=== PATIENT | female | born 1975 | race Caucasian/White ===

== ENCOUNTER 2017-09-03 21:28 | Observation (INO) ==
[2017-09-03] MEDS ORDERED: ONDANSETRON 4 MG/2 ML VIAL IV STA (21:52)
[2017-09-03] MEDS ORDERED: HYDROmorphone 2 MG/1 ML VIAL IV STA (21:52)
[2017-09-03] MEDS ORDERED: CLINDAMYCIN INJ 900 MG in PREMIX 1 EACH IV STA (21:53)
[2017-09-03] MEDS ORDERED: ONDANSETRON 4 MG/2 ML VIAL ONE ×2 (21:58→23:25)
[2017-09-03] MEDS ORDERED: CLINDAMYCIN INJ 50 ML IV ONE (21:58)
[2017-09-03] MEDS ORDERED: HYDROmorphone 2 MG/1 ML VIAL ONE (21:59)
[2017-09-03] MEDS ORDERED: DIPH/TET/ACEL PERT BOOSTER VACCINE 0.5 ML VIAL IM ONE ×2 (22:32→22:47)
[2017-09-03] MEDS ORDERED: BUPIVACAINE 0.25% 50 ML VIAL ONE (23:02)
[2017-09-03] MEDS ORDERED: LIDOCAINE 1%/EPI INJ 20 ML VIAL ONE (23:02)
[2017-09-03 23:10] LABS: Basophils # 0.1 10*3/uL (0.0-0.2); Basophils % 1.1 % (0.0-0.8); Eosinophils # 0.2 10*3/uL (0.0-0.87); Eosinophils % 1.5 % (0.00-10.9); Hematocrit 44.5 VOL% (35.7-47.0); Hemoglobin 15.6 GM/DL (12.0-16.0); Immature Granulocytes % 0.6 %; Immature Granulocytes Absolute 0.07 #; Lymphocytes % 17.6 % (21.3-54.2); Mean Corpuscular HGB Conc 35.1 GM/DL (32-36); Mean Corpuscular Hemoglobin 29 PG (27-34); Mean Corpuscular Volume 83.5 FL (87-102); Mean Platelet Volume 10.3 FL (9.6-12.0); Monocytes # 0.5 10*3/uL (0.11-0.8); Monocytes % 4.7 % (1.7-12.7); Neutrophils # 8.4 10*3/uL (1.4-7.4); Neutrophils % 74.5 % (38.7-73.9); Platelet Count 277 T/CUMM (130-400); Red Blood Count 5.33 MC/CUMM (3.8-5.5); Red Cell Distribution Width 12.8 % (9.3-17.3); White Blood Count 11.3 T/CUMM (4-12)
[2017-09-03] MEDS ORDERED: KETOROLAC 30 MG/1 ML VIAL ONE (23:25)
[2017-09-03] MEDS ORDERED: LIDOCAINE 1% 5 ML VIAL ONE (23:25)
[2017-09-03] MEDS ORDERED: PROPOFOL 200 MG/20 ML VIAL IV ONE (23:25)
[2017-09-03] MEDS ORDERED: PHENYLEPHRINE 1 MG/10 ML SYRINGE IV ONE (23:25)
[2017-09-03] MEDS ORDERED: DEXAMETHASONE 10 MG/1 ML VIAL ONE (23:25)
[2017-09-03 23:26] LABS: PT Patient Result 10.1 SECS; Partial Thromboplastin Time 24.3 SECS (0-40)
[2017-09-03 23:28] LABS: Bilirubin,Total 0.6 MG/DL (0.2-1.0); Calcium 8.4 MG/DL (8.5-10.1); Osmolality,Calculated 282.5 MOS/KG (273-304); Potassium 3.8 MMOL/L (3.5-5.1); Total Protein 6.9 G/DL (6.4-8.3)
[2017-09-04] MEDS ORDERED: ONDANSETRON 4 MG/2 ML VIAL IV PRN (00:23)
[2017-09-04] MEDS ORDERED: MIDAZOLAM 2 MG/2 ML VIAL ONE (00:42)
[2017-09-04] MEDS ORDERED: fentaNYL 100 MCG/2 ML VIAL ONE (00:42)
[2017-09-04] MEDS ORDERED: ePHEDrine 50 MG/ML AMP ONE (00:42)
[2017-09-04] MEDS ORDERED: SEVOFLURANE 1 UNIT/15 MINUTE INH ONE (00:42)
[2017-09-04] MEDS ORDERED: LACTATED RINGERS 1,000 ML IV ONE (00:43)
[2017-09-04] MEDS: HYDROmorphone 2 MG/1 ML VIAL IV PRN ×7 (01:28→21:39)
[2017-09-04] MEDS: CLINDAMYCIN INJ 900 MG in PREMIX 1 EACH IV SCH ×3 (06:14→21:40)
[2017-09-04] MEDS: LEVOFLOXACIN INJ 500 MG in PREMIX 1 EACH IV SCH (17:36)
[2017-09-05] MEDS: CLINDAMYCIN INJ 900 MG in PREMIX 1 EACH IV SCH ×2 (05:54→13:59)
[2017-09-05] MEDS: HYDROmorphone 2 MG/1 ML VIAL IV PRN ×3 (05:54→13:56)
[2017-09-05 08:06] LABS: Calcium 7.7 MG/DL (8.5-10.1); Osmolality,Calculated 283.1 MOS/KG (273-304); Potassium 3.7 MMOL/L (3.5-5.1)
[2017-09-05 08:41] LABS: Basophils # 0.1 10*3/uL (0.0-0.2); Basophils % 0.7 % (0.0-0.8); Eosinophils # 0.1 10*3/uL (0.0-0.87); Eosinophils % 0.5 % (0.00-10.9); Hematocrit 31.6 VOL% (35.7-47.0); Hemoglobin 10.7 GM/DL (12.0-16.0); Immature Granulocytes % 0.6 %; Immature Granulocytes Absolute 0.06 #; Lymphocytes # 3.4 10*3/uL (1.4-4.0); Lymphocytes % 35.2 % (21.3-54.2); Mean Corpuscular HGB Conc 33.9 GM/DL (32-36); Mean Corpuscular Hemoglobin 29 PG (27-34); Mean Corpuscular Volume 86.6 FL (87-102); Mean Platelet Volume 10.5 FL (9.6-12.0); Monocytes # 0.6 10*3/uL (0.11-0.8); Monocytes % 5.8 % (1.7-12.7); Neutrophils # 5.5 10*3/uL (1.4-7.4); Neutrophils % 57.2 % (38.7-73.9); Platelet Count 214 T/CUMM (130-400); Red Blood Count 3.65 MC/CUMM (3.8-5.5); Red Cell Distribution Width 13.2 % (9.3-17.3); White Blood Count 9.5 T/CUMM (4-12)
[2017-09-05] MEDS: LEVOFLOXACIN INJ 500 MG in PREMIX 1 EACH IV SCH (09:35)
[2017-09-05 11:50] VITALS: BP 107/61
== END 2017-09-05 16:50 | disposition home or self-care (01) ==
LOC: N.ED 21:28 → N.EDINP 22:28 → INTOOBSV 22:28 → N.2E 23:15
PROVIDERS: ADMIT Surgery; ATTEND Surgery

== ENCOUNTER 2017-09-13 18:23 | Inpatient (IN) ==
[2017-09-13] MEDS ORDERED: ONDANSETRON 4 MG/2 ML VIAL IV STA (19:04)
[2017-09-13] MEDS ORDERED: VANCOMYCIN INJ 1,000 MG in SODIUM CHLORIDE 0.9% 250 ML IV STA (19:06)
[2017-09-13] MEDS ORDERED: GENTAMICIN INJ 80 MG in SODIUM CHLORIDE 0.9% 100 ML IV STA (19:06)
[2017-09-13] MEDS ORDERED: ONDANSETRON 4 MG/2 ML VIAL ONE (19:25)
[2017-09-13] MEDS ORDERED: HYDROmorphone 2 MG/1 ML VIAL ONE (19:25)
[2017-09-13] MEDS ORDERED: HYDROmorphone 2 MG/1 ML VIAL IV STA (19:46)
[2017-09-13 19:59] LABS: Basophils # 0.1 10*3/uL (0.0-0.2); Basophils % 1.3 % (0.0-0.8); Eosinophils # 0.2 10*3/uL (0.0-0.87); Eosinophils % 3.6 % (0.00-10.9); Hematocrit 43.1 VOL% (35.7-47.0); Hemoglobin 15.3 GM/DL (12.0-16.0); Immature Granulocytes % 0.4 %; Immature Granulocytes Absolute 0.02 #; Lymphocytes # 1.6 10*3/uL (1.4-4.0); Lymphocytes % 29.4 % (21.3-54.2); Mean Corpuscular HGB Conc 35.5 GM/DL (32-36); Mean Corpuscular Hemoglobin 29 PG (27-34); Mean Corpuscular Volume 81.9 FL (87-102); Mean Platelet Volume 9.7 FL (9.6-12.0); Monocytes # 0.2 10*3/uL (0.11-0.8); Monocytes % 2.8 % (1.7-12.7); Neutrophils # 3.3 10*3/uL (1.4-7.4); Neutrophils % 62.5 % (38.7-73.9); Platelet Count 238 T/CUMM (130-400); Red Blood Count 5.26 MC/CUMM (3.8-5.5); Red Cell Distribution Width 12.4 % (9.3-17.3); White Blood Count 5.3 T/CUMM (4-12)
[2017-09-13] MEDS ORDERED: VANCOMYCIN 1,000 MG VIAL ONE (20:08)
[2017-09-13 20:18] LABS: Albumin 3.7 G/DL (3.4-5.0); Bilirubin,Total 0.5 MG/DL (0.2-1.0); Calcium 8.9 MG/DL (8.5-10.1); Magnesium 1.9 MG/DL (1.8-2.4); Osmolality,Calculated 280.7 MOS/KG (273-304); Potassium 3.3 MMOL/L (3.5-5.1); Total Protein 7.1 G/DL (6.4-8.3)
[2017-09-13] MEDS ORDERED: POTASSIUM CHLORIDE 20 MEQ TABLET PO STA (20:41)
[2017-09-13 20:43] LABS: PT Patient Result 10.1 SECS; Partial Thromboplastin Time 28.9 SECS (0-40)
[2017-09-13] MEDS ORDERED: POTASSIUM CHLORIDE 20 MEQ TABLET PO ONE (20:49)
[2017-09-13] MEDS ORDERED: ONDANSETRON 4 MG/2 ML VIAL IV PRN (22:19)
[2017-09-13] MEDS ORDERED: DEXTROSE 50% 25 GM/50 ML VIAL IV PRN (22:19)
[2017-09-13] MEDS ORDERED: GLUCAGON 1 MG VIAL IM PRN (22:19)
[2017-09-13] MEDS ORDERED: ACETAMINOPHEN 325 MG TABLET PO PRN (22:19)
[2017-09-14] MEDS: HYDROmorphone 2 MG/1 ML VIAL IV PRN (00:04)
[2017-09-14 05:16] LABS: Albumin 3.1 G/DL (3.4-5.0); Bilirubin,Total 0.4 MG/DL (0.2-1.0); Calcium 8.1 MG/DL (8.5-10.1); Osmolality,Calculated 279.4 MOS/KG (273-304); Total Protein 5.6 G/DL (6.4-8.3)
[2017-09-14 07:41] LABS: Basophils # 0.1 10*3/uL (0.0-0.2); Basophils % 1.4 % (0.0-0.8); Eosinophils # 0.3 10*3/uL (0.0-0.87); Eosinophils % 4.3 % (0.00-10.9); Hematocrit 31.5 VOL% (35.7-47.0); Immature Granulocytes % 0.5 %; Immature Granulocytes Absolute 0.03 #; Lymphocytes # 1.6 10*3/uL (1.4-4.0); Lymphocytes % 27.9 % (21.3-54.2); Mean Corpuscular HGB Conc 35.6 GM/DL (32-36); Mean Corpuscular Hemoglobin 30 PG (27-34); Mean Corpuscular Volume 83.8 FL (87-102); Mean Platelet Volume 9.8 FL (9.6-12.0); Monocytes # 0.4 10*3/uL (0.11-0.8); Monocytes % 6.9 % (1.7-12.7); Neutrophils # 3.4 10*3/uL (1.4-7.4); Platelet Count 251 T/CUMM (130-400); Red Cell Distribution Width 12.5 % (9.3-17.3); White Blood Count 5.8 T/CUMM (4-12)
[2017-09-14 07:48] LABS: Red Blood Count 3.76 MC/CUMM (3.8-5.5)
[2017-09-14 07:49] LABS: Hemoglobin 11.2 GM/DL (12.0-16.0)
[2017-09-14] MEDS: PANTOPRAZOLE 40 MG TABLET PO SCH (08:25)
[2017-09-14] MEDS: INSULIN REGULAR 100 UNIT/ML SUBCUT SCH ×4 (08:26→21:23)
[2017-09-14] MEDS: VANCOMYCIN INJ 1,250 MG in SODIUM CHLORIDE 0.45% 250 ML IV SCH ×2 (11:45→21:55)
[2017-09-14] MEDS: GENTAMICIN INJ 300 MG in SODIUM CHLORIDE 0.9% 100 ML IV SCH (17:36)
[2017-09-14] MEDS: LACTATED RINGERS 1,000 ML IV SCH (18:27)
[2017-09-15] MEDS ORDERED: BUPIVACAINE 0.25% 50 ML VIAL ONE (07:40)
[2017-09-15] MEDS ORDERED: LIDOCAINE 1%/EPI INJ 20 ML VIAL ONE (07:40)
[2017-09-15] MEDS: INSULIN REGULAR 100 UNIT/ML SUBCUT SCH ×4 (07:57→22:08)
[2017-09-15] MEDS: PANTOPRAZOLE 40 MG TABLET PO SCH (08:03)
[2017-09-15] MEDS: HYDROmorphone 2 MG/1 ML VIAL IV PRN ×2 (08:08→22:17)
[2017-09-15] MEDS ORDERED: ALBUTEROL/IPRATROPIUM 3 ML NEB RESP TX ONE ×2 (09:24→09:26)
[2017-09-15] MEDS: VANCOMYCIN INJ 1,250 MG in SODIUM CHLORIDE 0.45% 250 ML IV SCH ×2 (10:41→22:08)
[2017-09-15] MEDS ORDERED: SEVOFLURANE 1 UNIT/15 MINUTE INH ONE (11:04)
[2017-09-15] MEDS ORDERED: PROPOFOL 200 MG/20 ML VIAL IV ONE (11:04)
[2017-09-15] MEDS ORDERED: fentaNYL 100 MCG/2 ML VIAL ONE (11:04)
[2017-09-15] MEDS ORDERED: MIDAZOLAM 2 MG/2 ML VIAL ONE (11:04)
[2017-09-15] MEDS ORDERED: SUCCINYLCHOLINE 200 MG/10 ML VIAL ONE (11:05)
[2017-09-15] MEDS: LACTATED RINGERS 1,000 ML IV SCH (17:36)
[2017-09-15] MEDS: GENTAMICIN INJ 300 MG in SODIUM CHLORIDE 0.9% 100 ML IV SCH (18:00)
[2017-09-15 18:17] LABS: Apearance,Urine Slightly Hazy (Clear); Bacteria,Urine Occasional /HPF (Few); Bilirubin,Urine Negative (Negative); Blood, Urine Negative (Negative); Glucose,Urine (UA) 50 mg/dL (Negative); Ketones,Urine Negative (Negative); Mucus,Urine Occasional /LPF (Occasional); Nitrite,Urine Negative (Negative); Protein,Urine Negative; RBC,Urine <1 /HPF (0-4); Squamous Epithelial Cell,Urine Occasional /HPF (0-10); Urine Color Yellow (Yellow); Urine Urobilinogen < 2.0 EU/DL (0.2-1.0); WBC,Urine 1 /HPF (0-6)
[2017-09-16] MEDS: INSULIN REGULAR 100 UNIT/ML SUBCUT SCH ×4 (08:06→20:39)
[2017-09-16] MEDS: HYDROmorphone 2 MG/1 ML VIAL IV PRN ×3 (08:09→20:39)
[2017-09-16] MEDS: PANTOPRAZOLE 40 MG TABLET PO SCH (09:20)
[2017-09-16] MEDS: VANCOMYCIN INJ 1,250 MG in SODIUM CHLORIDE 0.45% 250 ML IV SCH ×2 (09:23→21:48)
[2017-09-16] MEDS: LACTATED RINGERS 1,000 ML IV SCH ×2 (12:07→20:15)
[2017-09-16] MEDS: GENTAMICIN INJ 300 MG in SODIUM CHLORIDE 0.9% 100 ML IV SCH (17:13)
[2017-09-17] MEDS: HYDROmorphone 2 MG/1 ML VIAL IV PRN ×3 (03:01→20:24)
[2017-09-17] MEDS: INSULIN REGULAR 100 UNIT/ML SUBCUT SCH ×4 (08:19→21:53)
[2017-09-17] MEDS: LACTATED RINGERS 1,000 ML IV SCH (08:20)
[2017-09-17] MEDS: PANTOPRAZOLE 40 MG TABLET PO SCH (08:54)
[2017-09-17] MEDS: VANCOMYCIN INJ 1,250 MG in SODIUM CHLORIDE 0.45% 250 ML IV SCH ×2 (09:00→21:51)
[2017-09-17 10:27] LABS: Calcium 8.5 MG/DL (8.5-10.1); Osmolality,Calculated 275.5 MOS/KG (273-304); Potassium 3.7 MMOL/L (3.5-5.1)
[2017-09-17] MEDS: GENTAMICIN INJ 300 MG in SODIUM CHLORIDE 0.9% 100 ML IV SCH (17:56)
[2017-09-18] MEDS: LACTATED RINGERS 1,000 ML IV SCH (02:17)
[2017-09-18] MEDS: INSULIN REGULAR 100 UNIT/ML SUBCUT SCH ×3 (07:33→16:19)
[2017-09-18] MEDS: PANTOPRAZOLE 40 MG TABLET PO SCH (08:27)
[2017-09-18] MEDS: VANCOMYCIN INJ 1,250 MG in SODIUM CHLORIDE 0.45% 250 ML IV SCH (10:30)
[2017-09-18] MEDS ORDERED: NEOMYCIN/POLYMYXIN/BACITRACIN OINT 28.4 GM TUBE TOP ONE (12:34)
[2017-09-18] MEDS ORDERED: HYDROmorphone 2 MG/1 ML VIAL IV PRN (12:42)
[2017-09-18] MEDS: HYDROmorphone 2 MG/1 ML VIAL IV PRN ×3 (12:50→13:27)
[2017-09-18] MEDS ORDERED: ONDANSETRON 4 MG/2 ML VIAL ONE ×2 (12:52→12:55)
[2017-09-18] MEDS ORDERED: PROPOFOL 200 MG/20 ML VIAL IV ONE (12:54)
[2017-09-18] MEDS ORDERED: fentaNYL 100 MCG/2 ML VIAL ONE (12:55)
[2017-09-18] MEDS ORDERED: MIDAZOLAM 2 MG/2 ML VIAL ONE (12:55)
[2017-09-18] MEDS ORDERED: ONDANSETRON 4 MG/2 ML VIAL IV PRN (12:58)
[2017-09-18] MEDS ORDERED: DEXTROSE 5% NACL 0.45% 1,000 ML IV SCH (13:00)
[2017-09-18 17:05] VITALS: BP 146/86
[2017-09-18] MEDS ORDERED: CLINDAMYCIN INJ 900 MG in PREMIX 1 EACH IV SCH (18:47)
== END 2017-09-18 17:05 | disposition home or self-care (01) | DRG 902 ==
LOC: N.ED 18:23 → N.EDINP 21:17 → N.3E 22:13
PROVIDERS: ADMIT Surgery; ATTEND Surgery

== ENCOUNTER 2017-11-13 12:29 | Inpatient (IN) ==
[2017-11-13] MEDS ORDERED: ASPIRIN 325 MG TABLET PO STA (12:56)
[2017-11-13] MEDS ORDERED: ONDANSETRON 4 MG/2 ML VIAL IV PRN ×2 (12:56→17:24)
[2017-11-13] MEDS ORDERED: MORPHINE 2 MG/1 ML SYRINGE IV PRN (12:56)
[2017-11-13] MEDS ORDERED: NITROGLYCERIN 2% OINT 1 INCH/GM PACK TOP STA (12:56)
[2017-11-13 13:07] LABS: Basophils # 0.1 10*3/uL (0.0-0.2); Basophils % 0.8 % (0.0-0.8); Eosinophils # 0.1 10*3/uL (0.0-0.87); Eosinophils % 2.1 % (0.00-10.9); Hematocrit 47.1 VOL% (35.7-47.0); Hemoglobin 15.8 GM/DL (12.0-16.0); Immature Granulocytes % 0.3 %; Immature Granulocytes Absolute 0.02 #; Lymphocytes % 16.5 % (21.3-54.2); Mean Corpuscular HGB Conc 33.5 GM/DL (32-36); Mean Corpuscular Hemoglobin 28 PG (27-34); Mean Corpuscular Volume 82.3 FL (87-102); Monocytes # 0.3 10*3/uL (0.11-0.8); Monocytes % 4.7 % (1.7-12.7); Neutrophils # 4.6 10*3/uL (1.4-7.4); Neutrophils % 75.6 % (38.7-73.9); Platelet Count 195 T/CUMM (130-400); Red Blood Count 5.72 MC/CUMM (3.8-5.5); Red Cell Distribution Width 12.9 % (9.3-17.3); White Blood Count 6.1 T/CUMM (4-12)
[2017-11-13 13:15] LABS: PT Patient Result 10.2 SECS; Partial Thromboplastin Time 27.1 SECS (0-40)
[2017-11-13] MEDS ORDERED: NITROGLYCERIN 2% OINT 1 INCH/GM PACK TOP ONE (13:29)
[2017-11-13 13:32] LABS: Albumin 3.6 G/DL (3.4-5.0); Bilirubin,Total 0.7 MG/DL (0.2-1.0); Calcium 7.9 MG/DL (8.5-10.1); Osmolality,Calculated 279.5 MOS/KG (273-304); Potassium 3.5 MMOL/L (3.5-5.1); Total Protein 6.2 G/DL (6.4-8.3)
[2017-11-13] MEDS ORDERED: KETOROLAC 30 MG/1 ML VIAL IV PRN (17:04)
[2017-11-13] MEDS ORDERED: TEMAZEPAM 15 MG CAPSULE PO PRN (17:04)
[2017-11-13] MEDS ORDERED: IBUPROFEN 800 MG TABLET PO PRN (17:04)
[2017-11-13] MEDS ORDERED: MELOXICAM 7.5 MG TABLET PO PRN (17:04)
[2017-11-13 17:18] LABS: Apearance,Urine Slightly Hazy (Clear); Bilirubin,Urine Negative (Negative); Blood, Urine Negative (Negative); Glucose,Urine (UA) Negative (Negative); Ketones,Urine Negative (Negative); Nitrite,Urine Negative (Negative); Protein,Urine Negative; RBC,Urine 3 /HPF (0-4); Squamous Epithelial Cell,Urine Few /HPF (0-10); Urine Color Yellow (Yellow); Urine Specific Gravity > 1.060 (1.001-1.035); Urine Urobilinogen < 2.0 EU/DL (0.2-1.0); WBC,Urine <1 /HPF (0-6)
[2017-11-13 17:24] LABS: Barbiturates Screen,Urine Negative (Negative); Benzodiazepines Screen,Urine Negative (Negative); Cannabinoid Screen,Urine Negative (Negative); Opiate Screen,Urine Positive (Negative); Phencyclidine Screen,Urine Negative (Negative)
[2017-11-13] MEDS ORDERED: MORPHINE 10 MG/1 ML VIAL IV PRN (17:24)
[2017-11-13] MEDS ORDERED: GLUCAGON 1 MG VIAL IM PRN (17:24)
[2017-11-13] MEDS ORDERED: ACETAMINOPHEN 325 MG TABLET PO PRN (17:24)
[2017-11-13] MEDS ORDERED: DEXTROSE 50% 25 GM/50 ML VIAL IV PRN (17:24)
[2017-11-13 17:29] LABS: Risk Ratio 4.79; T4 (Thyroxine) 9.5 UG/DL (4.7-13.3); VLDL CHOLESTEROL 43.8 MG/DL
[2017-11-13] MEDS: NITROGLYCERIN 2% OINT 1 INCH/GM PACK TOP SCH (20:51)
[2017-11-13] MEDS: INSULIN LISPRO 100 UNIT/ML SUBCUT SCH (20:51)
[2017-11-13] MEDS ORDERED: ENOXAPARIN 40 MG/0.4 ML SYRINGE SUBCUT SCH (21:00)
[2017-11-13] MEDS ORDERED: LISINOPRIL 20 MG TABLET PO SCH (21:00)
[2017-11-14] MEDS: NITROGLYCERIN 2% OINT 1 INCH/GM PACK TOP SCH ×3 (00:25→13:09)
[2017-11-14 06:25] LABS: Albumin 3.3 G/DL (3.4-5.0); Bilirubin,Total 0.5 MG/DL (0.2-1.0); Calcium 7.6 MG/DL (8.5-10.1); Osmolality,Calculated 278.4 MOS/KG (273-304); Potassium 3.5 MMOL/L (3.5-5.1)
[2017-11-14] MEDS ORDERED: ASPIRIN EC 325 MG TABLET PO SCH (09:00)
[2017-11-14] MEDS ORDERED: SIMVASTATIN 40 MG TABLET PO SCH (09:00)
[2017-11-14] MEDS ORDERED: METOPROLOL SUCCINATE XL 25 MG TABLET PO SCH (10:00)
[2017-11-14] MEDS: INSULIN LISPRO 100 UNIT/ML SUBCUT SCH ×2 (10:00→12:38)
[2017-11-14 10:37] LABS: Troponin I Only < 0.015 NG/ML (0.00-0.045)
[2017-11-14 12:41] VITALS: BP 126/82
== END 2017-11-14 13:49 | disposition home or self-care (01) | DRG 880 ==
LOC: EDUNIT# → EDBD → N.ED 12:29 → N.TELEN 15:12 → N.EDINP 17:09 → N.TELEN 18:22
PROVIDERS: ADMIT Pediatrics; ATTEND Pediatrics

== ENCOUNTER 2017-12-22 21:10 | Inpatient (IN) ==
[2017-12-23] MEDS ORDERED: ACETAMINOPHEN 325 MG TABLET PO PRN (01:51)
[2017-12-23] MEDS ORDERED: GLUCAGON 1 MG VIAL IM PRN ×2 (01:54→12:16)
[2017-12-23] MEDS ORDERED: DEXTROSE 50% 25 GM/50 ML VIAL IV PRN ×2 (01:54→12:16)
[2017-12-23 02:21] LABS: Basophils # 0.1 10*3/uL (0.0-0.2); Basophils % 0.6 % (0.0-0.8); Eosinophils # 0.2 10*3/uL (0.0-0.87); Eosinophils % 1.8 % (0.00-10.9); Hematocrit 41.1 VOL% (35.7-47.0); Immature Granulocytes % 0.3 %; Immature Granulocytes Absolute 0.03 #; Lymphocytes # 1.8 10*3/uL (1.4-4.0); Lymphocytes % 18.7 % (21.3-54.2); Mean Corpuscular HGB Conc 34.1 GM/DL (32-36); Mean Corpuscular Hemoglobin 27 PG (27-34); Mean Platelet Volume 10.2 FL (9.6-12.0); Monocytes # 0.7 10*3/uL (0.11-0.8); Monocytes % 6.9 % (1.7-12.7); Neutrophils # 6.9 10*3/uL (1.4-7.4); Neutrophils % 71.7 % (38.7-73.9); Platelet Count 214 T/CUMM (130-400); Red Cell Distribution Width 13.9 % (9.3-17.3); White Blood Count 9.6 T/CUMM (4-12)
[2017-12-23] MEDS ORDERED: ONDANSETRON 4 MG/2 ML VIAL ONE ×3 (02:27→11:30)
[2017-12-23] MEDS ORDERED: HYDROmorphone 2 MG/1 ML VIAL ONE ×2 (02:28→11:30)
[2017-12-23] MEDS: HYDROmorphone 2 MG/1 ML VIAL IV PRN ×2 (02:30→18:15)
[2017-12-23] MEDS: ONDANSETRON 4 MG/2 ML VIAL IV PRN (02:30)
[2017-12-23 02:33] LABS: Calcium 7.9 MG/DL (8.5-10.1); Osmolality,Calculated 276.5 MOS/KG (273-304); Potassium 3.3 MMOL/L (3.5-5.1)
[2017-12-23] MEDS: INSULIN LISPRO 100 UNIT/ML SUBCUT SCH ×4 (03:03→17:40)
[2017-12-23] MEDS: SODIUM CHLORIDE 0.45% 1,000 ML IV SCH ×3 (03:08→20:53)
[2017-12-23] MEDS: metroNIDAZOLE INJ 500 MG in PREMIX 1 EACH IV SCH ×3 (03:17→18:14)
[2017-12-23] MEDS: LEVOFLOXACIN INJ 750 MG in PREMIX 1 EACH IV SCH (04:19)
[2017-12-23] MEDS: PANTOPRAZOLE 40 MG TABLET PO SCH (08:11)
[2017-12-23] MEDS ORDERED: PROPOFOL 200 MG/20 ML VIAL IV ONE (11:16)
[2017-12-23] MEDS ORDERED: MIDAZOLAM 2 MG/2 ML VIAL ONE (11:16)
[2017-12-23] MEDS ORDERED: SEVOFLURANE 1 UNIT/15 MINUTE INH ONE (11:16)
[2017-12-23] MEDS ORDERED: HYDROmorphone 2 MG/1 ML VIAL IV PRN (11:17)
[2017-12-23] MEDS ORDERED: ONDANSETRON 4 MG/2 ML VIAL IV PRN (11:17)
[2017-12-23] MEDS ORDERED: fentaNYL 100 MCG/2 ML VIAL ONE (11:17)
[2017-12-23] MEDS ORDERED: TEMAZEPAM 15 MG CAPSULE PO PRN (12:16)
[2017-12-23] MEDS: INSULIN REGULAR 100 UNIT/ML SUBCUT SCH ×3 (13:01→20:59)
[2017-12-23] MEDS: LISINOPRIL 10 MG TABLET PO SCH (21:00)
[2017-12-23] MEDS: SIMVASTATIN 40 MG TABLET PO SCH (21:01)
[2017-12-24] MEDS: INSULIN LISPRO 100 UNIT/ML SUBCUT SCH ×5 (01:05→23:15)
[2017-12-24] MEDS: metroNIDAZOLE INJ 500 MG in PREMIX 1 EACH IV SCH (02:00)
[2017-12-24] MEDS: SODIUM CHLORIDE 0.45% 1,000 ML IV SCH ×2 (03:30→04:44)
[2017-12-24] MEDS: LEVOFLOXACIN INJ 750 MG in PREMIX 1 EACH IV SCH (04:44)
[2017-12-24 06:32] LABS: Basophils % 0.6 % (0.0-0.8); Eosinophils % 0.4 % (0.00-10.9); Hematocrit 34.2 VOL% (35.7-47.0); Hemoglobin 11.9 GM/DL (12.0-16.0); Immature Granulocytes % 0.7 %; Immature Granulocytes Absolute 0.04 #; Lymphocytes # 0.8 10*3/uL (1.4-4.0); Lymphocytes % 15.5 % (21.3-54.2); Mean Corpuscular HGB Conc 34.8 GM/DL (32-36); Mean Corpuscular Hemoglobin 28 PG (27-34); Mean Corpuscular Volume 79.2 FL (87-102); Mean Platelet Volume 10.3 FL (9.6-12.0); Monocytes # 0.3 10*3/uL (0.11-0.8); Monocytes % 5.1 % (1.7-12.7); Neutrophils # 4.2 10*3/uL (1.4-7.4); Neutrophils % 77.7 % (38.7-73.9); Platelet Count 170 T/CUMM (130-400); Red Blood Count 4.32 MC/CUMM (3.8-5.5); Red Cell Distribution Width 13.9 % (9.3-17.3); White Blood Count 5.3 T/CUMM (4-12)
[2017-12-24 07:07] LABS: Osmolality,Calculated 275.7 MOS/KG (273-304); Potassium 3.4 MMOL/L (3.5-5.1)
[2017-12-24] MEDS: INSULIN REGULAR 100 UNIT/ML SUBCUT SCH ×4 (08:10→20:42)
[2017-12-24] MEDS: ENOXAPARIN 40 MG/0.4 ML SYRINGE SUBCUT SCH (09:23)
[2017-12-24] MEDS: SULFAMETHOX/TRIMETHOPRIM 800-160 MG TABLET PO SCH ×2 (09:24→20:48)
[2017-12-24] MEDS: PANTOPRAZOLE 40 MG TABLET PO SCH (09:25)
[2017-12-24] MEDS: METOPROLOL SUCCINATE XL 25 MG TABLET PO SCH (09:26)
[2017-12-24] MEDS: ONDANSETRON 4 MG/2 ML VIAL IV PRN ×2 (14:03→20:40)
[2017-12-24] MEDS: HYDROmorphone 2 MG/1 ML VIAL IV PRN (20:37)
[2017-12-24] MEDS: LISINOPRIL 10 MG TABLET PO SCH (20:48)
[2017-12-24] MEDS: SIMVASTATIN 40 MG TABLET PO SCH (20:48)
[2017-12-25] MEDS: INSULIN LISPRO 100 UNIT/ML SUBCUT SCH ×2 (05:59→13:51)
[2017-12-25] MEDS: INSULIN REGULAR 100 UNIT/ML SUBCUT SCH ×2 (07:52→13:51)
[2017-12-25] MEDS: METOPROLOL SUCCINATE XL 25 MG TABLET PO SCH (08:15)
[2017-12-25] MEDS: ENOXAPARIN 40 MG/0.4 ML SYRINGE SUBCUT SCH (09:23)
[2017-12-25] MEDS: PANTOPRAZOLE 40 MG TABLET PO SCH (09:24)
[2017-12-25] MEDS: SULFAMETHOX/TRIMETHOPRIM 800-160 MG TABLET PO SCH (09:24)
[2017-12-25 10:59] VITALS: BP 94/66
== END 2017-12-25 13:15 | disposition home or self-care (01) | DRG 349 ==
LOC: N.ED 21:10 → N.EDINP 12-23 01:51 → N.3E 12-23 02:36
PROVIDERS: ADMIT Surgery; ATTEND Surgery